=== PATIENT | male | born 1980 | race Caucasian/White ===

== ENCOUNTER 2021-06-08 07:01 | Outpatient (CLI) | payer BC ==
--- NOTE | 2021-06-08 09:25 | Ultrasound Report ---
PROCEDURE: Abdomen Complete INDICATIONS: RLQ PAIN,RIGHT TESTICULAR PAIN,RUQ ABD PAIN TECHNIQUE: Real-time scanning was performed of the abdominal and retroperitoneal organs, with image documentatio n. COMPARISON: Correlation is made with the accompanying pelvis ultrasound, 06/08/2021. FINDINGS: Liver: The liver demonstrates normal size. The liver demonstrates mildly increased echogenicity, whi ch limits ultrasound sensitivity for detection of masses. Gallbladder: No gallstones or significant sludge can be seen. The gallbladder wall does not appear th ickened. There is no specific pericholecystic fluid. The sonographic Sharma's sign is negative. Biliary ducts: Intrahepatic bile ducts are non-dilated. Extrahepatic bile duct caliber measures 2 m m. Normal is 6-7 mm or less in diameter, or 10 mm or less post-cholecystectomy. Pancreas: Visualized portions of the pancreas are sonographically normal. Spleen: Spleen is normal in size and homogeneous in echotexture. Kidneys: Kidneys are normal in size and echotexture. Right kidney measures 10.6 cm long; left kidne y measures 10.4 cm long. No hydronephrosis or nephrolithiasis. No solid masses. Aorta: Visualized aorta is normal in caliber at less than 3 cm. Iliacs: Proximal common iliac arteries are normal in caliber at less than 2.5 cm. IVC: Intrahepatic inferior vena cava is patent. Miscellaneous: No free abdominal fluid. IMPRESSION: No imaging explanation is found for the patient's presenting symptoms. Increased liver echogenicity is seen. This is nonspecific, yet it is most commonly attributed to mild fatty infiltration. Reviewed by: Ant José MD on 06/08/2021 8:23 AM [facility] Approved by: Ant José MD on 06/08/2021 8:23 AM [facility] Station ID: [id number]
--- NOTE | 2021-06-08 09:50 | Ultrasound Report ---
PROCEDURE: Pelvic Limited or F/U INDICATIONS: RLQ PAIN,RIGHT TESTICULAR PAIN,RUQ ABD PAIN TECHNIQUE: Real-time focused scanning was performed of the abdomen with attention to the appendix, with image do cumentation. The patient declined examination of the testicles. COMPARISON: Correlation is made with the accompanying abdomen ultrasound, 06/08/2021. FINDINGS: Appendix visualization: Only the tip of the appendix is seen. Appendix measurements: 5 mm Associated findings: Echogenic fat: Absent Appendiceal compressibility: Normally compressible Appendicoliths: Absent Nearby free fluid: Absent Lymphadenopathy: Absent Tenderness on exam: Absent No findings of hernia can be seen at the area of clinical concern of the right groin. IMPRESSION: Only the tip of the appendix is seen. The tip appears normal. No hernia is seen. (The patient declined examination of the testicles.) Reviewed by: Ant José MD on 06/08/2021 8:48 AM [facility] Approved by: Ant José MD on 06/08/2021 8:48 AM [facility] Station ID: [id number]
== END 2021-06-08 07:02 | disposition home or self-care (01) ==
LOC: DI 07:01
PROVIDERS: ATTEND Registered Nurse
DX: R10.31 Right lower quadrant pain (principal); N50.811 Right testicular pain; R10.11 Right upper quadrant pain

== ENCOUNTER 2021-06-08 07:03 | Outpatient (CLI) | payer BC | END 2021-06-08 07:04 | disposition home or self-care (01) | LOC: DI 07:03 | PROVIDERS: ATTEND Registered Nurse | DX: Z53.9 Procedure and treatment not carried out, unspecified reason (principal) ==